=== PATIENT | female | born 1975 | race Caucasian/White ===

== ENCOUNTER 2019-08-26 09:57 | Day surgery (SDC) | payer BC ==
[~2019-08-26] VITALS: Ht 157.5 cm; Wt 74.8 kg
[2019-08-26] MEDS ORDERED: PROPOFOL 200MG/ 20ML VIAL (DIPRIVAN) IV ONE (12:55)
[2019-08-26] MEDS ORDERED: NS 1000 ML IV.SOLN IV ONE (12:55)
[2019-08-26] MEDS ORDERED: fentaNYL CITRATE/PF 100 MCG/2 ML AMP ONE (12:55)
[2019-08-26] MEDS ORDERED: METOCLOPRAMIDE HCL 10 MG/2 ML VIAL ONE (12:55)
[2019-08-26] MEDS ORDERED: DEXAMETHASONE SOD PHOSPHATE 4 MG/ML VIAL ONE (12:55)
[2019-08-26] MEDS ORDERED: SEVOFLURANE 15 MIN GAS INH ONE (12:55)
[2019-08-26] MEDS ORDERED: MIDAZOLAM HCL 5 MG/5 ML VIAL IVP ONE (12:55)
[2019-08-26] MEDS ORDERED: LR 1,000 ML IV.SOLN IV ONE (12:55)
[2019-08-26] MEDS ORDERED: LR 1,000 ML IV ONE (12:59)
[2019-08-26] MEDS ORDERED: HYDROmorphone 1 MG INJ. 1 MG/ML AMPUL IVP PRN (13:00)
[2019-08-26] MEDS ORDERED: ONDANSETRON HCL 4 MG/2 ML VIAL IVP PRN (13:00)
[2019-08-26] MEDS ORDERED: KETOROLAC TROMETHAMINE 30 MG VIAL IM PRN (13:00)
[2019-08-26 14:00] VITALS: BP_SYST 119
== END 2019-08-26 14:50 | disposition home or self-care (01) ==
LOC: SDS 09:57 → SMU 09:59 → SDS 14:50
PROVIDERS: ATTEND Obstetrics & Gynecology
DX: N92.0 Excessive and frequent menstruation with regular cycle (principal); G43.909 Migraine, unspecified, not intractable, without status migrainosus
CPT/HCPCS: J1100; J2250; J2704; J2765; J3010; J7030; J7120